=== PATIENT | male | born 2000 | race Caucasian/White ===

== ENCOUNTER 2018-08-03 18:44 | Emergency (ER) | payer OTHER ==
[~2018-08-03] VITALS: Ht 170.2 cm; Wt 54.4 kg
[~2018-08-03 18:44] MED LIST: BACTRIM DS TAB1 EACH PO
--- NOTE | 2018-08-03 20:37 | Diagnostic Imaging Report ---
ANKLE 3 + VIEWS RIGHT HISTORY: Pain. COMPARISON: None available. FINDINGS: Bones: No acute displaced fracture. Osseous alignment is within normal limits. Joints: The joint spaces are well-maintained. Soft tissues: The soft tissues appear unremarkable. IMPRESSION: No acute radiographic abnormality. Signed by: DR. Danny Rowe MD on 08/03/2018 8:33 PM
== END 2018-08-03 21:44 | disposition home or self-care (01) ==
LOC: ER 18:44
DX: S90.01XA Contusion of right ankle, initial encounter (principal); X50.1XXA Overexertion from prolonged static or awkward postures, initial encounter; Y92.89 Other specified places as the place of occurrence of the external cause
CPT/HCPCS: 99283